=== PATIENT | male | born 1955 | race African-American/Black ===

== ENCOUNTER 2017-11-18 09:45 | Emergency (ER) | payer MEDICAID ==
[~2017-11-18] VITALS: Ht 175.3 cm; Wt 97.0 kg
[2017-11-18 15:52] LABS: BASOPHILS % 1.1 % (0.0-2.0); EOSINOPHILS % 1.8 % (0.0-5.0); HEMATOCRIT. 39.5 % (42.0-52.0); HEMOGLOBIN. 13.5 g/dL (14.0-18.0); LYMPHOCYTES % 23.5 % (20.0-50.0); MEAN CORPUSCULAR HEMOGLOBIN 30.4 pg (28.0-32.0); MEAN PLATELET VOLUME 9.2 fl (7.4-10.4); MONOCYTES % 5.7 % (2.0-8.0); NEUTROPHILS % 67.9 % (40.0-76.0); PLATELET 172 x1000/uL (130-400); RED BLOOD CELL COUNT 4.44 mill/uL (4.7-6.1); RED CELL DISTRIBUTION WIDTH 14.5 % (11.6-14.6)
[2017-11-18 16:17] LABS: CHLORIDE 107 mEq/L (98-107)
[2017-11-18 16:26] LABS: TROPONIN I < 0.02 ng/mL (0.00-0.04)
[2017-11-18] MEDS ORDERED: ACETAMINOPHEN 325MG TABLET PO ONE (16:45)
[2017-11-18 18:07] VITALS: BP 134/76
== END 2017-11-18 18:15 | disposition home or self-care (01) ==
LOC: ER 11:04
DX: M25.511 Pain in right shoulder (principal); R79.89 Other specified abnormal findings of blood chemistry; E78.00 Pure hypercholesterolemia, unspecified; I10 Essential (primary) hypertension; F17.200 Nicotine dependence, unspecified, uncomplicated
CPT/HCPCS: 36415; 71045; 73030; 80053; 84484; 85025; 93005; 99285

== ENCOUNTER 2019-04-21 12:14 | Emergency (ER) | payer MEDICARE, MEDICAID ==
[~2019-04-21] VITALS: Ht 180.3 cm; Wt 100.0 kg
[2019-04-21] MEDS ORDERED: KETOROLAC 60MG/2ML VIAL IM ONE (14:45)
[2019-04-21 16:05] VITALS: BP 142/90
== END 2019-04-21 16:25 | disposition home or self-care (01) ==
LOC: ER 14:13
DX: M17.12 Unilateral primary osteoarthritis, left knee (principal); J45.909 Unspecified asthma, uncomplicated; I11.9 Hypertensive heart disease without heart failure; E78.00 Pure hypercholesterolemia, unspecified
CPT/HCPCS: 73562; 93971; 96372; 99284; J1885

== ENCOUNTER 2021-07-16 08:18 | Inpatient (IN) | payer MEDICARE, MEDICAID ==
[2021-07-16] VITALS (8 sets, daily range): BP systolic 107–147; BP diastolic 37–87
[~2021-07-16] VITALS: Ht 172.7 cm; Wt 104.3 kg
[2021-07-16] MEDS ORDERED: LEVETIRACETAM 1000MG PREMIX 100 ML IV ONE (09:00)
[2021-07-16] MEDS ORDERED: SODIUM CHLORIDE 0.9% 1,000 ML IV ONE ×2 (09:15→10:45)
[2021-07-16] MEDS ORDERED: IOHEXOL-350 100 ML BOTTLE ONE (09:22)
[2021-07-16 09:25] LABS: BASOPHILS % 0.6 % (0.0-2.0); EOSINOPHILS % 0.5 % (0.0-5.0); HEMATOCRIT. 45.5 % (42.0-52.0); MEAN CORPUSCULAR HEMOGLOBIN 29.9 pg (28.0-32.0); MEAN PLATELET VOLUME 10.8 fl (7.4-10.4); MONOCYTES % 6.9 % (2.0-8.0); PLATELET 238 x1000/uL (130-400); RED BLOOD CELL COUNT 4.69 mill/uL (4.7-6.1); RED CELL DISTRIBUTION WIDTH 14.6 % (11.6-14.6)
[2021-07-16] MEDS ORDERED: LORAZEPAM 2MG/ML CPJ IV ONE (09:30)
[2021-07-16 09:31] LABS: CHLORIDE 90 mEq/L (98-107)
[2021-07-16 09:35] LABS: ETHANOL BLOOD < 10 mg/dL
[2021-07-16 09:36] LABS: PROTHROMBIN TIME 10.5 sec (9.6-11.0)
[2021-07-16 09:37] LABS: LDL CHOLESTEROL 72 mg/dL (5-100)
[2021-07-16 09:43] LABS: BETA HYDROXYBUTYRATE 0.3 mMol/L (0.0-0.3)
[2021-07-16] MEDS ORDERED: INSULIN REGULAR (DRIP) 100 UNITS in SODIUM CHLORIDE 0.9% 100 ML IV ONE (10:00)
[2021-07-16 10:23] LABS: BG BASE EXCESS -13.8 mmol/L (-2.0-2.0); BG CARBOXYHEMOGLOBIN 0.4 % (0.5-1.5); BG DEOXYHEMOGLOBIN 5.2 % (0.0-5.0); BG FRACTION INSPIRED OXYGEN 99.8; BG HCO3 ACT 12.4 mmol/L (22.0-26.0); BG METHEMOGLOBIN 0.3 % (0.0-1.5); BG OXYGEN SATURATION 94.8 % (92.0-98.5); BG OXYHEMOGLOBIN 94.1 % (94.0-97.0); BG PCO2 30.8 mmHg (35.0-45.0); BG PH 7.224 (7.350-7.450); BG PO2 88.5 mmHg (75.0-100.0); BG SAMPLE SITE LEFT RADIAL; BG TOTAL HEMOGLOBIN 15.9 g/dL (12.0-18.0); BG VENT MODE MASK - NRB
[2021-07-16] MEDS ORDERED: DEXTROSE 50% WATER 50ML SYRINGE IV PRN ×2 (15:00)
[2021-07-16] MEDS ORDERED: ONDANSETRON HCL 4MG/2ML INJ IV PRN (15:00)
[2021-07-16] MEDS ORDERED: DOCUSATE SODIUM 100MG CAPSULE PO PRN (15:00)
[2021-07-16] MEDS ORDERED: ACETAMINOPHEN 325MG TABLET PO PRN (15:00)
[2021-07-16] MEDS ORDERED: MAGNESIUM/ALUMINUM HYDROXIDE/SIMETHICONE 30ML UDC PO PRN (15:00)
[2021-07-16] MEDS ORDERED: GUAIFENESIN 200MG/10ML SUGAR FREE UDC PO PRN (15:00)
[2021-07-16] MEDS: INSULIN REGULAR (DRIP) 100 UNITS in SODIUM CHLORIDE 0.9% 100 ML IV SCH (15:00)
[2021-07-16] MEDS ORDERED: ENOXAPARIN 40MG/0.4ML SYR SUBCUT SCH (15:00)
[2021-07-16] MEDS ORDERED: LEVETIRACETAM 500 MG in SODIUM CHLORIDE 0.9% 100 ML IV SCH (15:15)
[2021-07-16] MEDS ORDERED: LORAZEPAM 2MG/ML CPJ IV PRN (15:15)
[2021-07-16] MEDS: BLOOD SUGAR DIAGNOSTIC STRIP TEST SCH ×9 (15:40→23:00)
[2021-07-16] MEDS: ENOXAPARIN 30MG/0.3ML SYR SUBCUT SCH (17:07)
[2021-07-16] MEDS: SODIUM CHLORIDE 0.9% 1,000 ML IV SCH ×2 (17:08→21:40)
[2021-07-16 20:35] LABS: CLARITY URINE CLOUDY (CLEAR); COLOR URINE YELLOW (YELLOW); KETONES URINE TRACE (NEGATIVE); LEUKOCYTE ESTERASE URINE TRACE (NEGATIVE); NITRITE URINE NEGATIVE (NEGATIVE); OCCULT BLOOD URINE 3+ (NEGATIVE); PH URINE 5.5 (4.5-8.0); PROTEIN URINE 2+ (NEGATIVE); SPECIFIC GRAVITY URINE 1.042 (1.005-1.030); UROBILINOGEN URINE 0.2 E.U./dL (0.2-1.0)
[2021-07-16 20:51] LABS: CANNABINOID URINE SCREEN NEGATIVE (NEGATIVE)
[2021-07-16 20:52] LABS: *AMPHETAMINES SCREEN URINE NEGATIVE (NEGATIVE); *BARBITURATES SCREEN URINE NEGATIVE (NEGATIVE); *BENZODIAZEPINES SCREEN URINE NEGATIVE (NEGATIVE); *COCAINE SCREEN URINE PRESUMTIVE POSITIVE (NEGATIVE); OPIATES URINE SCREEN NEGATIVE (NEGATIVE)
[2021-07-16 20:53] LABS: PHENCYCLIDINE URINE SCREEN PRESUMTIVE POSITIVE (NEGATIVE)
[2021-07-16 20:54] LABS: METHADONE URINE SCREEN NEGATIVE (NEGATIVE)
[2021-07-16] MEDS: LEVETIRACETAM 500MG PREMIX 100 ML IV SCH (21:35)
[2021-07-16] MEDS: ACETAMINOPHEN 650MG SUPP PR PRN (21:35)
[2021-07-16 21:43] LABS: PHOSPHORUS 2.5 mg/dL (2.5-4.9)
[2021-07-16] MEDS: IPRATROPIUM/ALBUTEROL 0.5-3(2.5)MG/3ML NEB NEB PRN (21:56)
[2021-07-16] MEDS: DILTIAZEM HCL 60MG TABLET PO SCH (22:00)
[2021-07-16] MEDS ORDERED: VANCOMYCIN 1250MG in DEXTROSE 5% WATER 250ML IV NR (23:30)
[2021-07-16] MEDS ORDERED: PIPERACILLIN/TAZOBACTAM 3.375 G in DEXTROSE 5% WATER 50 ML IV SCH (23:30)
[2021-07-17] VITALS (46 sets, daily range): BP systolic 102–196; BP diastolic 36–124
[2021-07-17] MEDS: DEXT 5%/0.9% NACL KCL 20MEQ/L 1,000 ML IV SCH ×4 (00:15→19:32)
[2021-07-17] MEDS: BLOOD SUGAR DIAGNOSTIC STRIP TEST SCH ×24 (01:00→23:22)
[2021-07-17] MEDS: PIPERACILLIN/TAZOBACTAM 3.375 G in DEXTROSE 5% WATER 50 ML IV SCH ×3 (03:18→22:28)
[2021-07-17] MEDS: ENOXAPARIN 30MG/0.3ML SYR SUBCUT SCH ×2 (04:18→15:08)
[2021-07-17 05:19] LABS: BASOPHILS % 0.6 % (0.0-2.0); EOSINOPHILS % 0.3 % (0.0-5.0); HEMATOCRIT. 39.6 % (42.0-52.0); HEMOGLOBIN. 13.6 g/dL (14.0-18.0); LYMPHOCYTES % 11.6 % (20.0-50.0); MEAN CORPUSCULAR VOLUME 87.1 fL (80.0-94.0); MEAN PLATELET VOLUME 10.8 fl (7.4-10.4); MONOCYTES % 9.2 % (2.0-8.0); NEUTROPHILS % 78.3 % (40.0-76.0); PLATELET 169 x1000/uL (130-400); RED BLOOD CELL COUNT 4.54 mill/uL (4.7-6.1); RED CELL DISTRIBUTION WIDTH 14.2 % (11.6-14.6)
[2021-07-17 05:26] LABS: CHLORIDE 118 mEq/L (98-107)
[2021-07-17 05:34] LABS: LDL CHOLESTEROL 74 mg/dL (5-100)
[2021-07-17 05:36] LABS: CREATINE KINASE MB FRACTION 3.9 ng/mL (0.5-3.6); HDL CHOLESTEROL 43 mg/dL (40-59)
[2021-07-17] MEDS: DILTIAZEM HCL 60MG TABLET PO SCH ×3 (06:00→21:02)
[2021-07-17 06:27] LABS: CREATINE KINASE 2548 IU/L (39-308)
[2021-07-17] MEDS: PANTOPRAZOLE SODIUM 40 MG/VIAL IV SCH (08:07)
[2021-07-17] MEDS: ACETAMINOPHEN 650MG SUPP PR PRN (08:07)
[2021-07-17] MEDS ORDERED: BACL-141 MT (10:03)
[2021-07-17] MEDS ORDERED: METO-539 MT (10:03)
[2021-07-17] MEDS ORDERED: ISOS20TA57 PO (10:03)
[2021-07-17] MEDS ORDERED: AMLO5TAB88 MT (10:03)
[2021-07-17] MEDS ORDERED: ASPI-1497 PO (10:03)
[2021-07-17] MEDS: LEVETIRACETAM 500MG PREMIX 100 ML IV SCH ×2 (10:30→21:02)
[2021-07-17] MEDS: VANCOMYCIN 1 G PREMIX 200 ML IV SCH (17:59)
[2021-07-17] MEDS: INSULIN REGULAR (DRIP) 100 UNITS in SODIUM CHLORIDE 0.9% 100 ML IV SCH (19:32)
[2021-07-18] VITALS (76 sets, daily range): BP systolic 66–218; BP diastolic 35–133
[2021-07-18] MEDS ORDERED: VANCOMYCIN 750 MG PREMIX 150 ML IV SCH
[2021-07-18] MEDS: BLOOD SUGAR DIAGNOSTIC STRIP TEST SCH ×16 (00:31→20:57)
[2021-07-18] MEDS: DEXT 5%/0.9% NACL KCL 20MEQ/L 1,000 ML IV SCH ×2 (02:16→12:11)
[2021-07-18] MEDS: ENOXAPARIN 30MG/0.3ML SYR SUBCUT SCH ×2 (05:01→15:58)
[2021-07-18 05:45] LABS: BASOPHILS % 0.4 % (0.0-2.0); EOSINOPHILS % 2.3 % (0.0-5.0); HEMATOCRIT. 36.7 % (42.0-52.0); HEMOGLOBIN. 12.5 g/dL (14.0-18.0); LYMPHOCYTES % 10.6 % (20.0-50.0); MEAN CORPUSCULAR HEMOGLOBIN 29.9 pg (28.0-32.0); MEAN CORPUSCULAR VOLUME 87.8 fL (80.0-94.0); MEAN PLATELET VOLUME 10.5 fl (7.4-10.4); MONOCYTES % 8.5 % (2.0-8.0); NEUTROPHILS % 78.2 % (40.0-76.0); PLATELET 147 x1000/uL (130-400); RED BLOOD CELL COUNT 4.18 mill/uL (4.7-6.1); RED CELL DISTRIBUTION WIDTH 14.4 % (11.6-14.6)
[2021-07-18] MEDS: DILTIAZEM HCL 60MG TABLET PO SCH ×4 (06:00→21:37)
[2021-07-18] MEDS: PIPERACILLIN/TAZOBACTAM 3.375 G in DEXTROSE 5% WATER 50 ML IV SCH ×3 (06:09→21:37)
[2021-07-18] MEDS ORDERED: DEXTROSE 50% WATER 50ML SYRINGE IV PRN (09:45)
[2021-07-18] MEDS: CLONIDINE 0.1MG TABLET PO PRN ×2 (10:20→18:51)
[2021-07-18] MEDS: INSULIN GLARGINE UD 100 UNITS/ML SYR SUBCUT SCH (11:29)
[2021-07-18] MEDS: VANCOMYCIN 1 G PREMIX 200 ML IV SCH (12:12)
[2021-07-18] MEDS: LEVETIRACETAM 500MG PREMIX 100 ML IV SCH ×2 (12:12→21:04)
[2021-07-18] MEDS: INSULIN LISPRO 100 UNITS/ML SUBCUT SCH ×5 (12:13→21:05)
[2021-07-18] MEDS: PANTOPRAZOLE SODIUM 40 MG/VIAL IV SCH (12:13)
[2021-07-18] MEDS ORDERED: LISINOPRIL 20MG TABLET PO SCH ×2 (15:30→16:00)
[2021-07-18] MEDS ORDERED: FUROSEMIDE 40MG/4ML VIAL IVP SCH (18:30)
[2021-07-18] MEDS: NITROGLYCERIN OINT 1GM/INCH UDPKT TD SCH (21:37)
[2021-07-18] MEDS: IPRATROPIUM/ALBUTEROL 0.5-3(2.5)MG/3ML NEB NEB PRN (21:42)
[2021-07-19] VITALS (59 sets, daily range): BP systolic 108–192; BP diastolic 39–151
[2021-07-19 02:58] LABS: BASOPHILS % 0.6 % (0.0-2.0); EOSINOPHILS % 1.3 % (0.0-5.0); HEMATOCRIT. 35.5 % (42.0-52.0); HEMOGLOBIN. 12.1 g/dL (14.0-18.0); MEAN CORPUSCULAR HEMOGLOBIN 30.1 pg (28.0-32.0); MEAN CORPUSCULAR VOLUME 87.8 fL (80.0-94.0); MEAN PLATELET VOLUME 9.9 fl (7.4-10.4); MONOCYTES % 8.2 % (2.0-8.0); NEUTROPHILS % 78.9 % (40.0-76.0); PLATELET 150 x1000/uL (130-400); RED BLOOD CELL COUNT 4.04 mill/uL (4.7-6.1); RED CELL DISTRIBUTION WIDTH 14.6 % (11.6-14.6)
[2021-07-19 03:10] LABS: CHLORIDE 118 mEq/L (98-107)
[2021-07-19] MEDS: ENOXAPARIN 30MG/0.3ML SYR SUBCUT SCH ×2 (03:15→17:09)
[2021-07-19 03:17] LABS: PHOSPHORUS 3.2 mg/dL (2.5-4.9)
[2021-07-19] MEDS: VANCOMYCIN 1 G PREMIX 200 ML IV SCH ×2 (05:28→05:39)
[2021-07-19] MEDS: PIPERACILLIN/TAZOBACTAM 3.375 G in DEXTROSE 5% WATER 50 ML IV SCH ×4 (05:28→21:01)
[2021-07-19] MEDS: BLOOD SUGAR DIAGNOSTIC STRIP TEST SCH ×4 (06:11→21:05)
[2021-07-19] MEDS: DILTIAZEM HCL 60MG TABLET PO SCH ×3 (06:23→21:01)
[2021-07-19] MEDS: NITROGLYCERIN OINT 1GM/INCH UDPKT TD SCH ×3 (06:23→21:02)
[2021-07-19] MEDS: INSULIN LISPRO 100 UNITS/ML SUBCUT SCH ×7 (06:25→21:03)
[2021-07-19] MEDS ORDERED: LIDOCAINE HCL 1% 30ML VIAL (10MG/ML) ONE (08:04)
[2021-07-19] MEDS: LISINOPRIL 20MG TABLET PO SCH ×2 (09:27→21:00)
[2021-07-19] MEDS: INSULIN GLARGINE UD 100 UNITS/ML SYR SUBCUT SCH (09:28)
[2021-07-19] MEDS ORDERED: POTASSIUM CHLORIDE 20MEQ/PACKET PO NR (09:45)
[2021-07-19] MEDS: FUROSEMIDE 40MG/4ML VIAL IVP SCH ×2 (12:06→17:09)
[2021-07-19] MEDS: LEVETIRACETAM 500MG PREMIX 100 ML IV SCH ×2 (12:07→21:00)
[2021-07-19] MEDS: PANTOPRAZOLE SODIUM 40 MG/VIAL IV SCH (12:07)
[2021-07-19] MEDS: VANCOMYCIN 1250MG in DEXTROSE 5% WATER 250ML IV SCH (15:07)
[2021-07-20 00:07] VITALS: BP 123/68
[2021-07-20] MEDS: ENOXAPARIN 30MG/0.3ML SYR SUBCUT SCH ×2 (03:31→17:06)
[2021-07-20 04:00] VITALS: BP 125/78
[2021-07-20] MEDS: PIPERACILLIN/TAZOBACTAM 3.375 G in DEXTROSE 5% WATER 50 ML IV SCH ×2 (05:46→14:21)
[2021-07-20] MEDS: DILTIAZEM HCL 60MG TABLET PO SCH ×3 (05:47→21:26)
[2021-07-20] MEDS: NITROGLYCERIN OINT 1GM/INCH UDPKT TD SCH ×3 (05:47→21:27)
[2021-07-20] MEDS: FUROSEMIDE 40MG/4ML VIAL IVP SCH ×2 (06:40→17:00)
[2021-07-20] MEDS: BLOOD SUGAR DIAGNOSTIC STRIP TEST SCH ×4 (07:41→21:25)
[2021-07-20 08:00] VITALS: BP 110/67
[2021-07-20] MEDS: VANCOMYCIN 1250MG in DEXTROSE 5% WATER 250ML IV SCH (08:24)
[2021-07-20] MEDS: LEVETIRACETAM 500MG PREMIX 100 ML IV SCH ×2 (08:24→21:24)
[2021-07-20] MEDS: LISINOPRIL 20MG TABLET PO SCH ×2 (08:25→21:25)
[2021-07-20] MEDS: PANTOPRAZOLE SODIUM 40 MG/VIAL IV SCH (08:25)
[2021-07-20] MEDS: INSULIN LISPRO 100 UNITS/ML SUBCUT SCH ×7 (08:26→21:28)
[2021-07-20 09:40] LABS: BASOPHILS % 0.7 % (0.0-2.0); EOSINOPHILS % 2.6 % (0.0-5.0); HEMOGLOBIN. 13.2 g/dL (14.0-18.0); LYMPHOCYTES % 14.4 % (20.0-50.0); MEAN CORPUSCULAR HEMOGLOBIN 29.8 pg (28.0-32.0); MEAN CORPUSCULAR VOLUME 88.4 fL (80.0-94.0); MEAN PLATELET VOLUME 10.8 fl (7.4-10.4); NEUTROPHILS % 76.3 % (40.0-76.0); PLATELET 184 x1000/uL (130-400); RED BLOOD CELL COUNT 4.41 mill/uL (4.7-6.1); RED CELL DISTRIBUTION WIDTH 14.4 % (11.6-14.6)
[2021-07-20] MEDS: INSULIN GLARGINE UD 100 UNITS/ML SYR SUBCUT SCH (10:28)
[2021-07-20 11:11] LABS: CHLORIDE 112 mEq/L (98-107); PHOSPHORUS 3.7 mg/dL (2.5-4.9)
[2021-07-20 12:00] VITALS: BP 133/80
[2021-07-20] MEDS ORDERED: GUAIFENESIN-DM 200MG-20MG/10ML UDC PO PRN (14:15)
[2021-07-20] MEDS ORDERED: CEFTRIAXONE 1 G PREMIX 50 ML IV SCH (14:45)
[2021-07-20 16:02] VITALS: BP 141/78
[2021-07-20] MEDS ORDERED: GADOTERATE MEGLUMINE 5 MMOL/10 ML VIAL IV ONE (16:09)
[2021-07-20] MEDS: CEFTRIAXONE 1,000 MG in DEXTROSE 5% WATER 50 ML IV SCH (17:01)
[2021-07-20] MEDS: AZITHROMYCIN 500 MG in DEXT 5% WATER 250 ML IV SCH (17:01)
[2021-07-20] MEDS: ACETAMINOPHEN 325MG TABLET PO PRN (19:56)
[2021-07-20 20:00] VITALS: BP 110/58
[2021-07-21] VITALS: BP 92/60
[2021-07-21 04:00] VITALS: BP 135/70
[2021-07-21] MEDS: ENOXAPARIN 30MG/0.3ML SYR SUBCUT SCH ×2 (05:08→15:11)
[2021-07-21] MEDS: DILTIAZEM HCL 60MG TABLET PO SCH ×3 (05:08→21:24)
[2021-07-21] MEDS: NITROGLYCERIN OINT 1GM/INCH UDPKT TD SCH ×3 (05:08→21:24)
[2021-07-21] MEDS: FUROSEMIDE 40MG/4ML VIAL IVP SCH ×2 (06:22→17:05)
[2021-07-21 06:45] LABS: BASOPHILS % 0.8 % (0.0-2.0); EOSINOPHILS % 2.9 % (0.0-5.0); HEMATOCRIT. 36.9 % (42.0-52.0); HEMOGLOBIN. 12.4 g/dL (14.0-18.0); LYMPHOCYTES % 11.9 % (20.0-50.0); MEAN CORPUSCULAR HEMOGLOBIN 29.6 pg (28.0-32.0); MEAN CORPUSCULAR VOLUME 88.6 fL (80.0-94.0); MEAN PLATELET VOLUME 10.1 fl (7.4-10.4); NEUTROPHILS % 75.4 % (40.0-76.0); PLATELET 163 x1000/uL (130-400); RED BLOOD CELL COUNT 4.17 mill/uL (4.7-6.1); RED CELL DISTRIBUTION WIDTH 14.3 % (11.6-14.6)
[2021-07-21] MEDS: BLOOD SUGAR DIAGNOSTIC STRIP TEST SCH ×4 (06:56→21:24)
[2021-07-21 07:24] LABS: PHOSPHORUS 4.4 mg/dL (2.5-4.9)
[2021-07-21] MEDS: INSULIN LISPRO 100 UNITS/ML SUBCUT SCH ×7 (07:27→21:33)
[2021-07-21 08:00] VITALS: BP 126/66
[2021-07-21] MEDS: LISINOPRIL 20MG TABLET PO SCH ×2 (08:02→21:23)
[2021-07-21] MEDS: FAMOTIDINE 20MG TABLET PO SCH ×2 (08:02→21:24)
[2021-07-21] MEDS: LEVETIRACETAM 500MG PREMIX 100 ML IV SCH (08:04)
[2021-07-21] MEDS: INSULIN GLARGINE UD 100 UNITS/ML SYR SUBCUT SCH (11:26)
[2021-07-21 12:00] VITALS: BP 116/87
[2021-07-21] MEDS: AZITHROMYCIN 500 MG in DEXT 5% WATER 250 ML IV SCH (15:11)
[2021-07-21] MEDS: CEFTRIAXONE 1,000 MG in DEXTROSE 5% WATER 50 ML IV SCH (15:11)
[2021-07-21 16:00] VITALS: BP 112/85
[2021-07-21 20:00] VITALS: BP 116/66
[2021-07-21] MEDS: LEVETIRACETAM 500MG TABLET PO SCH (21:23)
[2021-07-22] VITALS: BP 133/40
[2021-07-22 04:00] VITALS: BP 133/60
[2021-07-22] MEDS: ENOXAPARIN 30MG/0.3ML SYR SUBCUT SCH ×2 (04:19→16:00)
[2021-07-22] MEDS: DILTIAZEM HCL 60MG TABLET PO SCH ×3 (05:39→21:38)
[2021-07-22] MEDS: NITROGLYCERIN OINT 1GM/INCH UDPKT TD SCH ×3 (05:40→21:39)
[2021-07-22] MEDS: INSULIN LISPRO 100 UNITS/ML SUBCUT SCH ×7 (05:45→21:44)
[2021-07-22] MEDS: BLOOD SUGAR DIAGNOSTIC STRIP TEST SCH ×4 (05:45→21:37)
[2021-07-22] MEDS: FUROSEMIDE 40MG/4ML VIAL IVP SCH ×2 (07:15→18:26)
[2021-07-22 08:00] VITALS: BP 118/65
[2021-07-22] MEDS: FAMOTIDINE 20MG TABLET PO SCH ×2 (10:21→21:29)
[2021-07-22] MEDS: LISINOPRIL 20MG TABLET PO SCH ×2 (10:22→21:37)
[2021-07-22] MEDS: LEVETIRACETAM 500MG TABLET PO SCH ×2 (10:22→21:28)
[2021-07-22] MEDS: INSULIN GLARGINE UD 100 UNITS/ML SYR SUBCUT SCH (10:23)
[2021-07-22 12:00] VITALS: BP 116/60
[2021-07-22 16:00] VITALS: BP 139/90
[2021-07-22] MEDS: CEFTRIAXONE 1,000 MG in DEXTROSE 5% WATER 50 ML IV SCH (16:00)
[2021-07-22] MEDS: AZITHROMYCIN 500 MG in DEXT 5% WATER 250 ML IV SCH (18:46)
[2021-07-22 20:00] VITALS: BP 115/56
[2021-07-22] MEDS: ACETAMINOPHEN 325MG TABLET PO PRN (21:36)
[2021-07-23] VITALS: BP 111/66
[2021-07-23 04:00] VITALS: BP 125/91
[2021-07-23] MEDS: ENOXAPARIN 30MG/0.3ML SYR SUBCUT SCH ×2 (04:45→15:00)
[2021-07-23] MEDS: NITROGLYCERIN OINT 1GM/INCH UDPKT TD SCH ×3 (05:22→21:05)
[2021-07-23] MEDS: DILTIAZEM HCL 60MG TABLET PO SCH ×3 (05:23→21:05)
[2021-07-23] MEDS: BLOOD SUGAR DIAGNOSTIC STRIP TEST SCH ×4 (06:24→21:07)
[2021-07-23] MEDS: INSULIN LISPRO 100 UNITS/ML SUBCUT SCH ×8 (06:25→21:06)
[2021-07-23] MEDS: FUROSEMIDE 40MG/4ML VIAL IVP SCH ×2 (07:15→17:03)
[2021-07-23 08:00] VITALS: BP 108/84
[2021-07-23] MEDS: LISINOPRIL 20MG TABLET PO SCH ×2 (08:29→21:05)
[2021-07-23] MEDS: FAMOTIDINE 20MG TABLET PO SCH ×2 (09:22→21:04)
[2021-07-23] MEDS: LEVETIRACETAM 500MG TABLET PO SCH ×2 (09:22→21:04)
[2021-07-23] MEDS: INSULIN GLARGINE UD 100 UNITS/ML SYR SUBCUT SCH (09:23)
[2021-07-23 12:00] VITALS: BP 122/57
[2021-07-23] MEDS: CEFTRIAXONE 1,000 MG in DEXTROSE 5% WATER 50 ML IV SCH (15:00)
[2021-07-23 16:00] VITALS: BP 124/82
[2021-07-23] MEDS: AZITHROMYCIN 500 MG in DEXT 5% WATER 250 ML IV SCH (17:03)
[2021-07-23 20:00] VITALS: BP 111/69
[2021-07-24] VITALS: BP 101/37
[2021-07-24 04:00] VITALS: BP 128/42
[2021-07-24] MEDS: ENOXAPARIN 30MG/0.3ML SYR SUBCUT SCH ×2 (04:59→17:23)
[2021-07-24] MEDS: DILTIAZEM HCL 60MG TABLET PO SCH ×3 (05:00→21:05)
[2021-07-24] MEDS: NITROGLYCERIN OINT 1GM/INCH UDPKT TD SCH ×3 (05:00→21:06)
[2021-07-24] MEDS: BLOOD SUGAR DIAGNOSTIC STRIP TEST SCH ×4 (06:03→20:58)
[2021-07-24] MEDS: INSULIN LISPRO 100 UNITS/ML SUBCUT SCH ×7 (06:03→20:58)
[2021-07-24] MEDS: FUROSEMIDE 40MG/4ML VIAL IVP SCH ×2 (06:09→17:23)
[2021-07-24 08:00] VITALS: BP 97/42
[2021-07-24] MEDS: LISINOPRIL 20MG TABLET PO SCH ×2 (09:00→20:57)
[2021-07-24] MEDS: LEVETIRACETAM 500MG TABLET PO SCH ×2 (09:13→20:57)
[2021-07-24] MEDS: FAMOTIDINE 20MG TABLET PO SCH ×2 (09:13→20:57)
[2021-07-24] MEDS: INSULIN GLARGINE UD 100 UNITS/ML SYR SUBCUT SCH (09:59)
[2021-07-24] MEDS ORDERED: AZITHROMYCIN 500 MG TABLET PO SCH (11:00)
[2021-07-24 12:00] VITALS: BP 132/81
[2021-07-24 16:00] VITALS: BP 140/64
[2021-07-24] MEDS: CEFTRIAXONE 1,000 MG in DEXTROSE 5% WATER 50 ML IV SCH (17:23)
[2021-07-24 20:00] VITALS: BP 108/59
[2021-07-25] VITALS: BP 100/59
[2021-07-25 04:00] VITALS: BP 106/61
[2021-07-25] MEDS: NITROGLYCERIN OINT 1GM/INCH UDPKT TD SCH ×3 (05:16→21:03)
[2021-07-25] MEDS: DILTIAZEM HCL 60MG TABLET PO SCH ×3 (05:16→21:03)
[2021-07-25] MEDS: ENOXAPARIN 30MG/0.3ML SYR SUBCUT SCH ×2 (05:17→16:57)
[2021-07-25] MEDS: INSULIN LISPRO 100 UNITS/ML SUBCUT SCH ×7 (05:54→20:52)
[2021-07-25] MEDS: BLOOD SUGAR DIAGNOSTIC STRIP TEST SCH ×4 (05:55→20:51)
[2021-07-25] MEDS: FUROSEMIDE 40MG/4ML VIAL IVP SCH ×2 (06:11→16:57)
[2021-07-25 08:00] VITALS: BP 121/69
[2021-07-25] MEDS: FAMOTIDINE 20MG TABLET PO SCH ×2 (08:45→20:51)
[2021-07-25] MEDS: LEVETIRACETAM 500MG TABLET PO SCH ×2 (08:45→20:50)
[2021-07-25] MEDS: LISINOPRIL 20MG TABLET PO SCH ×2 (08:46→20:51)
[2021-07-25] MEDS: INSULIN GLARGINE UD 100 UNITS/ML SYR SUBCUT SCH (10:15)
[2021-07-25 12:00] VITALS: BP 129/74
[2021-07-25 16:00] VITALS: BP 129/41
[2021-07-25 20:00] VITALS: BP 106/58
[2021-07-26] VITALS: BP 110/56
[2021-07-26 04:00] VITALS: BP 124/70
[2021-07-26] MEDS: ENOXAPARIN 30MG/0.3ML SYR SUBCUT SCH ×2 (04:59→15:56)
[2021-07-26] MEDS: DILTIAZEM HCL 60MG TABLET PO SCH ×3 (05:00→21:21)
[2021-07-26] MEDS: NITROGLYCERIN OINT 1GM/INCH UDPKT TD SCH ×3 (05:00→21:29)
[2021-07-26] MEDS: BLOOD SUGAR DIAGNOSTIC STRIP TEST SCH ×4 (05:47→20:17)
[2021-07-26] MEDS: INSULIN LISPRO 100 UNITS/ML SUBCUT SCH ×7 (05:48→20:18)
[2021-07-26] MEDS: FUROSEMIDE 40MG/4ML VIAL IVP SCH ×2 (06:17→16:48)
[2021-07-26 08:00] VITALS: BP 103/63
[2021-07-26] MEDS: LISINOPRIL 20MG TABLET PO SCH ×2 (08:45→20:59)
[2021-07-26] MEDS: FAMOTIDINE 20MG TABLET PO SCH ×2 (09:20→21:00)
[2021-07-26] MEDS: LEVETIRACETAM 500MG TABLET PO SCH ×2 (09:20→21:00)
[2021-07-26] MEDS: INSULIN GLARGINE UD 100 UNITS/ML SYR SUBCUT SCH (09:21)
[2021-07-26 12:00] VITALS: BP 128/66
[2021-07-26 16:00] VITALS: BP 122/56
[2021-07-26 20:00] VITALS: BP 110/57
[2021-07-27 00:07] VITALS: BP 109/65
[2021-07-27] MEDS: ENOXAPARIN 30MG/0.3ML SYR SUBCUT SCH ×2 (03:06→16:59)
[2021-07-27 04:00] VITALS: BP 120/88
[2021-07-27] MEDS: NITROGLYCERIN OINT 1GM/INCH UDPKT TD SCH ×2 (05:40→13:46)
[2021-07-27] MEDS: DILTIAZEM HCL 60MG TABLET PO SCH ×2 (05:40→13:47)
[2021-07-27] MEDS: BLOOD SUGAR DIAGNOSTIC STRIP TEST SCH ×3 (05:42→16:55)
[2021-07-27] MEDS: INSULIN LISPRO 100 UNITS/ML SUBCUT SCH ×6 (05:48→16:55)
[2021-07-27] MEDS: FUROSEMIDE 40MG/4ML VIAL IVP SCH (06:39)
[2021-07-27 08:00] VITALS: BP_SYST 111; BP_SYST 160; BP_DIAS 103; BP_DIAS 63
[2021-07-27] MEDS: LEVETIRACETAM 500MG TABLET PO SCH (09:04)
[2021-07-27] MEDS: LISINOPRIL 20MG TABLET PO SCH (09:05)
[2021-07-27] MEDS: FAMOTIDINE 20MG TABLET PO SCH (09:05)
[2021-07-27] MEDS: INSULIN GLARGINE UD 100 UNITS/ML SYR SUBCUT SCH (10:16)
[2021-07-27 12:00] VITALS: BP 112/60
[2021-07-27 16:00] VITALS: BP 108/55
[2021-07-27] MEDS ORDERED: FUROSEMIDE 40MG TABLET PO SCH (17:15)
[2021-07-27 18:53] VITALS: BP_SYST 108; BP_DIAS 55; BP_DIAS 71
[2021-07-28] MEDS ORDERED: FAMOTIDINE 20MG TABLET PO SCH (06:40)
== END 2021-07-27 20:10 | DRG 720 ==
LOC: ER 08:18 → MICUNO 12:28 → EDBEDREQSVC 12:31 → EDBEDREQTM 12:31 → EDBEDREQ 12:31 → ENRESERV 13:09 → MICUSO 23:55 → 7WST 07-19 14:25 → 7EST 07-22 06:07
PROVIDERS: ADMIT Internal Medicine; ATTEND Internal Medicine
PROC: XW03396 Introduction of Ceftolozane/Tazobactam Anti-infective into Peripheral Vein, Percutaneous Approach, New Technology Group 6 (ICD-10-PCS; 2021-07-17)
PROC: 02HV33Z Insertion of Infusion Device into Superior Vena Cava, Percutaneous Approach (ICD-10-PCS; principal; 2021-07-19)
PROC: B548ZZA Ultrasonography of Superior Vena Cava, Guidance (ICD-10-PCS; 2021-07-19)
DX: A41.89 Other specified sepsis (principal); J96.01 Acute respiratory failure with hypoxia; J12.82 Pneumonia due to coronavirus disease 2019; N17.0 Acute kidney failure with tubular necrosis; U07.1 COVID-19; E44.0 Moderate protein-calorie malnutrition; E11.10 Type 2 diabetes mellitus with ketoacidosis without coma; G92.8 Other toxic encephalopathy; E78.00 Pure hypercholesterolemia, unspecified; E87.1 Hypo-osmolality and hyponatremia; J45.909 Unspecified asthma, uncomplicated; R56.9 Unspecified convulsions; R65.20 Severe sepsis without septic shock; D32.9 Benign neoplasm of meninges, unspecified; N18.9 Chronic kidney disease, unspecified; E11.22 Type 2 diabetes mellitus with diabetic chronic kidney disease; I12.9 Hypertensive chronic kidney disease with stage 1 through stage 4 chronic kidney disease, or unspecified chronic kidney disease; I25.10 Atherosclerotic heart disease of native coronary artery without angina pectoris; E78.5 Hyperlipidemia, unspecified; F14.10 Cocaine abuse, uncomplicated; F16.10 Hallucinogen abuse, uncomplicated; I27.20 Pulmonary hypertension, unspecified; Z71.51 Drug abuse counseling and surveillance of drug abuser; Z68.35 Body mass index [BMI] 35.0-35.9, adult
CPT/HCPCS: 36415; 36573; 36600; 70496; 70498; 70553; 71045; 80048; 80053; 80061; 80202; 80305; 80320; 81003; 82010; 82375; 82550; 82553; 82805; 82962; 83036; 83721; 83735; 84100; 84484; 85025; 87070; 87426; 93005; 93306; 93970; 94640; 97110; 97116; 97162; 97166; 97530; 97535; 99291; A9577; C1725; C1769; C1893; C9113; J0456; J0696; J1650; J1815; J1940; J1953; J2060; J2543; J3370; J3490; J7030; J7040; J7042; J7050; J7060; Q9967; U0003; U0005; G0480

== ENCOUNTER 2021-07-27 12:28 | Inpatient (IN) | payer MEDICARE, MEDICAID ==
[~2021-07-27] VITALS: Ht 172.7 cm; Wt 98.9 kg
[~2021-07-27 12:28] MED LIST: AMLO5TAB88 MT; ASPI-1497 PO; BACL-141 MT; ISOS20TA57 PO; METO-539 MT
[2021-07-27 20:12] VITALS: BP 117/76
[2021-07-27] MEDS ORDERED: IPRATROPIUM/ALBUTEROL 0.5-3(2.5)MG/3ML NEB HHN PRN (21:45)
[2021-07-27] MEDS ORDERED: ACETAMINOPHEN 325MG TABLET PO PRN (21:45)
[2021-07-27] MEDS ORDERED: DEXTROSE 50% WATER 50ML SYRINGE IV PRN (21:45)
[2021-07-27] MEDS ORDERED: ONDANSETRON HCL 4MG TABLET PO PRN (21:45)
[2021-07-27] MEDS: LISINOPRIL 20MG TABLET PO SCH (22:00)
[2021-07-27] MEDS: DILTIAZEM HCL 60MG TABLET PO SCH (22:00)
[2021-07-27 22:12] VITALS: BP 117/76
[2021-07-27] MEDS ORDERED: MAGNESIUM/ALUMINUM HYDROXIDE/SIMETHICONE 30ML UDC PO PRN (22:15)
[2021-07-27] MEDS ORDERED: CLONIDINE 0.1MG TABLET PO PRN (22:15)
[2021-07-27] MEDS ORDERED: ACETAMINOPHEN 650MG SUPP PR PRN (22:15)
[2021-07-27] MEDS ORDERED: GUAIFENESIN-DM 200MG-20MG/10ML UDC PO PRN (22:15)
[2021-07-28] MEDS: LEVETIRACETAM 500MG TABLET PO SCH ×3 (00:03→21:17)
[2021-07-28] MEDS: NITROGLYCERIN OINT 1GM/INCH UDPKT TD SCH ×4 (00:03→21:18)
[2021-07-28] MEDS: DILTIAZEM HCL 60MG TABLET PO SCH ×3 (06:00→13:03)
[2021-07-28] MEDS: BLOOD SUGAR DIAGNOSTIC STRIP TEST SCH ×4 (06:09→21:18)
[2021-07-28] MEDS: INSULIN LISPRO 100 UNITS/ML SUBCUT SCH ×4 (06:10→21:00)
[2021-07-28] MEDS: ENOXAPARIN 30MG/0.3ML SYR SUBCUT SCH ×3 (06:23→21:18)
[2021-07-28] MEDS: FUROSEMIDE 40MG TABLET PO SCH ×2 (06:24→17:11)
[2021-07-28] MEDS: FAMOTIDINE 20MG TABLET PO SCH (06:24)
[2021-07-28 06:55] LABS: CHLORIDE 105 mEq/L (98-107)
[2021-07-28 07:02] LABS: HEMATOCRIT. 38.5 % (42.0-52.0); HEMOGLOBIN. 12.8 g/dL (14.0-18.0); LYMPHOCYTES % 17.9 % (20.0-50.0); MEAN CORPUSCULAR VOLUME 90.1 fL (80.0-94.0); MEAN PLATELET VOLUME 9.6 fl (7.4-10.4); NEUTROPHILS % 70.1 % (40.0-76.0); PLATELET 249 x1000/uL (130-400); RED BLOOD CELL COUNT 4.28 mill/uL (4.7-6.1); RED CELL DISTRIBUTION WIDTH 13.9 % (11.6-14.6)
[2021-07-28 08:00] VITALS: BP 99/65
[2021-07-28] MEDS: LISINOPRIL 20MG TABLET PO SCH ×2 (08:14→21:17)
[2021-07-28] MEDS: INSULIN GLARGINE UD 100 UNITS/ML SYR SUBCUT SCH (10:00)
[2021-07-28 20:00] VITALS: BP 120/83
[2021-07-29] MEDS: NITROGLYCERIN OINT 1GM/INCH UDPKT TD SCH ×3 (05:31→21:19)
[2021-07-29] MEDS: DILTIAZEM HCL 60MG TABLET PO SCH ×3 (05:31→21:19)
[2021-07-29] MEDS: FAMOTIDINE 20MG TABLET PO SCH (05:32)
[2021-07-29] MEDS: FUROSEMIDE 40MG TABLET PO SCH ×2 (05:32→17:48)
[2021-07-29] MEDS: BLOOD SUGAR DIAGNOSTIC STRIP TEST SCH ×4 (05:32→20:47)
[2021-07-29 06:44] LABS: BASOPHILS % 1.3 % (0.0-2.0); HEMATOCRIT. 38.2 % (42.0-52.0); LYMPHOCYTES % 21.4 % (20.0-50.0); MEAN CORPUSCULAR HEMOGLOBIN 30.3 pg (28.0-32.0); MEAN CORPUSCULAR VOLUME 89.1 fL (80.0-94.0); MEAN PLATELET VOLUME 9.8 fl (7.4-10.4); MONOCYTES % 7.9 % (2.0-8.0); NEUTROPHILS % 65.4 % (40.0-76.0); PLATELET 248 x1000/uL (130-400); RED BLOOD CELL COUNT 4.29 mill/uL (4.7-6.1); RED CELL DISTRIBUTION WIDTH 14.1 % (11.6-14.6)
[2021-07-29 06:48] LABS: CHLORIDE 105 mEq/L (98-107)
[2021-07-29 06:57] LABS: LDL CHOLESTEROL 119 mg/dL (5-100)
[2021-07-29 06:59] LABS: HDL CHOLESTEROL 31 mg/dL (40-59); TOTAL IRON BINDING CAPACITY 254 ug/dL (250-450)
[2021-07-29 07:00] LABS: CREATINE KINASE 102 IU/L (39-308)
[2021-07-29 07:02] LABS: PROSTRATE SPECIFIC AG TOTAL 1.48 ng/mL (0.0-4.0)
[2021-07-29 07:03] LABS: FOLIC ACID (FOLATE) SERUM 13.6 ng/mL (>5.38)
[2021-07-29 08:10] VITALS: BP 111/65
[2021-07-29] MEDS: INSULIN LISPRO 100 UNITS/ML SUBCUT SCH ×4 (09:00→21:34)
[2021-07-29] MEDS: LISINOPRIL 20MG TABLET PO SCH ×2 (09:38→20:47)
[2021-07-29] MEDS: LEVETIRACETAM 500MG TABLET PO SCH ×2 (09:39→20:46)
[2021-07-29] MEDS: INSULIN GLARGINE UD 100 UNITS/ML SYR SUBCUT SCH (09:42)
[2021-07-29] MEDS ORDERED: LACTULOSE 20G/30ML UDC PO SCH (12:00)
[2021-07-29] MEDS: ASCORBIC ACID 500 MG TABLET PO SCH (17:48)
[2021-07-29] MEDS: ENOXAPARIN 30MG/0.3ML SYR SUBCUT SCH (17:48)
[2021-07-29] MEDS: FERROUS SULFATE 325MG TABLET PO SCH (17:48)
[2021-07-29 20:00] VITALS: BP 165/77
[2021-07-29] MEDS ORDERED: NA PHOS,M-B/NA PHOS,DI-BA ENEMA 118ML PR SCH (20:15)
[2021-07-30] MEDS: NITROGLYCERIN OINT 1GM/INCH UDPKT TD SCH ×3 (06:00→22:00)
[2021-07-30] MEDS: DILTIAZEM HCL 60MG TABLET PO SCH ×3 (06:00→21:46)
[2021-07-30] MEDS: BLOOD SUGAR DIAGNOSTIC STRIP TEST SCH ×4 (06:30→21:45)
[2021-07-30] MEDS: ENOXAPARIN 30MG/0.3ML SYR SUBCUT SCH ×2 (06:37→17:02)
[2021-07-30] MEDS: FAMOTIDINE 20MG TABLET PO SCH (06:37)
[2021-07-30] MEDS: FUROSEMIDE 40MG TABLET PO SCH ×2 (06:39→17:03)
[2021-07-30] MEDS: INSULIN LISPRO 100 UNITS/ML SUBCUT SCH ×4 (09:00→21:58)
[2021-07-30 09:23] VITALS: BP 118/83
[2021-07-30] MEDS: FERROUS SULFATE 325MG TABLET PO SCH ×3 (09:53→17:03)
[2021-07-30] MEDS: LEVETIRACETAM 500MG TABLET PO SCH ×2 (09:53→21:51)
[2021-07-30] MEDS: LISINOPRIL 20MG TABLET PO SCH ×2 (09:53→21:00)
[2021-07-30] MEDS: ASCORBIC ACID 500 MG TABLET PO SCH (09:53)
[2021-07-30] MEDS: INSULIN GLARGINE UD 100 UNITS/ML SYR SUBCUT SCH (09:55)
[2021-07-30 12:03] LABS: CREATINE KINASE 76 IU/L (39-308)
[2021-07-30 14:00] VITALS: BP 110/81
[2021-07-30 14:32] LABS: CLARITY URINE CLEAR (CLEAR); COLOR URINE YELLOW (YELLOW); KETONES URINE NEGATIVE (NEGATIVE); LEUKOCYTE ESTERASE URINE TRACE (NEGATIVE); NITRITE URINE NEGATIVE (NEGATIVE); OCCULT BLOOD URINE NEGATIVE (NEGATIVE); PROTEIN URINE NEGATIVE (NEGATIVE); SPECIFIC GRAVITY URINE 1.014 (1.005-1.030); UROBILINOGEN URINE 0.2 E.U./dL (0.2-1.0)
[2021-07-30 20:00] VITALS: BP 94/56
[2021-07-31] MEDS: DILTIAZEM HCL 60MG TABLET PO SCH ×3 (06:00→21:39)
[2021-07-31] MEDS: NITROGLYCERIN OINT 1GM/INCH UDPKT TD SCH ×3 (06:00→21:40)
[2021-07-31] MEDS: FAMOTIDINE 20MG TABLET PO SCH (06:27)
[2021-07-31] MEDS: ENOXAPARIN 30MG/0.3ML SYR SUBCUT SCH ×2 (06:27→18:32)
[2021-07-31] MEDS: FUROSEMIDE 40MG TABLET PO SCH ×2 (06:27→16:58)
[2021-07-31] MEDS: BLOOD SUGAR DIAGNOSTIC STRIP TEST SCH ×4 (06:28→20:37)
[2021-07-31 07:37] VITALS: BP 110/63
[2021-07-31] MEDS: LISINOPRIL 20MG TABLET PO SCH ×2 (09:00→20:33)
[2021-07-31] MEDS: INSULIN LISPRO 100 UNITS/ML SUBCUT SCH ×4 (09:00→20:37)
[2021-07-31] MEDS: LEVETIRACETAM 500MG TABLET PO SCH ×2 (09:18→20:33)
[2021-07-31] MEDS: ASCORBIC ACID 500 MG TABLET PO SCH (09:18)
[2021-07-31] MEDS: FERROUS SULFATE 325MG TABLET PO SCH ×3 (09:18→16:58)
[2021-07-31] MEDS: INSULIN GLARGINE UD 100 UNITS/ML SYR SUBCUT SCH (11:00)
[2021-07-31 13:11] LABS: ANTI-NUCLEAR ANTIBODIES DIRECT Negative (Negative)
[2021-07-31] MEDS: LIDOCAINE 5% PATCH TOP SCH (16:57)
[2021-07-31 20:00] VITALS: BP 120/82
[2021-08-01] MEDS: DILTIAZEM HCL 60MG TABLET PO SCH (06:00)
[2021-08-01] MEDS: NITROGLYCERIN OINT 1GM/INCH UDPKT TD SCH ×3 (06:00→21:28)
[2021-08-01] MEDS: ENOXAPARIN 30MG/0.3ML SYR SUBCUT SCH ×2 (06:33→17:04)
[2021-08-01] MEDS: FAMOTIDINE 20MG TABLET PO SCH (06:34)
[2021-08-01] MEDS: FUROSEMIDE 40MG TABLET PO SCH ×2 (06:34→17:03)
[2021-08-01] MEDS: BLOOD SUGAR DIAGNOSTIC STRIP TEST SCH ×4 (06:39→21:23)
[2021-08-01] MEDS: INSULIN LISPRO 100 UNITS/ML SUBCUT SCH ×4 (06:39→21:00)
[2021-08-01 08:24] VITALS: BP 81/50
[2021-08-01] MEDS: LISINOPRIL 20MG TABLET PO SCH ×2 (09:00→21:25)
[2021-08-01] MEDS: ASCORBIC ACID 500 MG TABLET PO SCH (09:43)
[2021-08-01] MEDS: LEVETIRACETAM 500MG TABLET PO SCH ×2 (09:43→21:24)
[2021-08-01] MEDS: FERROUS SULFATE 325MG TABLET PO SCH ×3 (09:43→17:03)
[2021-08-01] MEDS: POLYETHYLENE GLYCOL 3350 (17GM) 1 DOSE PACK PO SCH (09:43)
[2021-08-01] MEDS: LIDOCAINE 5% PATCH TOP SCH (09:46)
[2021-08-01] MEDS: INSULIN GLARGINE UD 100 UNITS/ML SYR SUBCUT SCH (11:04)
[2021-08-01] MEDS ORDERED: DILTIAZEM HCL 60MG TABLET PO PRN (11:15)
[2021-08-01 16:27] LABS: BASOPHILS % 1.1 % (0.0-2.0); EOSINOPHILS % 1.6 % (0.0-5.0); HEMATOCRIT. 36.2 % (42.0-52.0); HEMOGLOBIN. 12.1 g/dL (14.0-18.0); LYMPHOCYTES % 19.2 % (20.0-50.0); MEAN CORPUSCULAR HEMOGLOBIN 29.8 pg (28.0-32.0); MEAN CORPUSCULAR VOLUME 88.9 fL (80.0-94.0); MEAN PLATELET VOLUME 10.4 fl (7.4-10.4); MONOCYTES % 8.3 % (2.0-8.0); NEUTROPHILS % 69.8 % (40.0-76.0); PLATELET 265 x1000/uL (130-400); RED BLOOD CELL COUNT 4.07 mill/uL (4.7-6.1); RED CELL DISTRIBUTION WIDTH 13.6 % (11.6-14.6)
[2021-08-01 20:00] VITALS: BP 129/92
[2021-08-02] MEDS: BLOOD SUGAR DIAGNOSTIC STRIP TEST SCH ×4 (05:30→20:39)
[2021-08-02] MEDS: INSULIN LISPRO 100 UNITS/ML SUBCUT SCH ×4 (05:30→20:39)
[2021-08-02] MEDS: ENOXAPARIN 30MG/0.3ML SYR SUBCUT SCH ×2 (05:42→19:09)
[2021-08-02] MEDS: NITROGLYCERIN OINT 1GM/INCH UDPKT TD SCH ×3 (05:42→21:21)
[2021-08-02 06:38] LABS: BASOPHILS % 1.8 % (0.0-2.0); EOSINOPHILS % 3.6 % (0.0-5.0); HEMATOCRIT. 36.8 % (42.0-52.0); HEMOGLOBIN. 12.4 g/dL (14.0-18.0); LYMPHOCYTES % 25.9 % (20.0-50.0); MEAN PLATELET VOLUME 9.9 fl (7.4-10.4); NEUTROPHILS % 59.7 % (40.0-76.0); PLATELET 235 x1000/uL (130-400); RED BLOOD CELL COUNT 4.14 mill/uL (4.7-6.1); RED CELL DISTRIBUTION WIDTH 14.1 % (11.6-14.6)
[2021-08-02] MEDS: FUROSEMIDE 40MG TABLET PO SCH ×2 (07:01→16:57)
[2021-08-02] MEDS: FAMOTIDINE 20MG TABLET PO SCH (07:01)
[2021-08-02 08:00] VITALS: BP 102/61
[2021-08-02] MEDS: LISINOPRIL 20MG TABLET PO SCH ×2 (09:00→21:21)
[2021-08-02] MEDS: FERROUS SULFATE 325MG TABLET PO SCH ×3 (09:11→16:56)
[2021-08-02] MEDS: LEVETIRACETAM 500MG TABLET PO SCH ×2 (09:11→21:17)
[2021-08-02] MEDS: ASCORBIC ACID 500 MG TABLET PO SCH (09:11)
[2021-08-02] MEDS: POLYETHYLENE GLYCOL 3350 (17GM) 1 DOSE PACK PO SCH (09:11)
[2021-08-02] MEDS: LIDOCAINE 5% PATCH TOP SCH ×2 (09:13→12:17)
[2021-08-02] MEDS: INSULIN GLARGINE UD 100 UNITS/ML SYR SUBCUT SCH (09:40)
[2021-08-02] MEDS: LACTULOSE 20G/30ML UDC PO SCH ×2 (12:21→13:00)
[2021-08-02] MEDS: DOCUSATE SODIUM 100MG CAPSULE PO PRN (16:57)
[2021-08-02 20:00] VITALS: BP 103/57
[2021-08-02] MEDS: ACETAMINOPHEN 325MG TABLET PO PRN (21:17)
[2021-08-03] MEDS: BLOOD SUGAR DIAGNOSTIC STRIP TEST SCH ×4 (05:58→20:41)
[2021-08-03] MEDS: NITROGLYCERIN OINT 1GM/INCH UDPKT TD SCH ×3 (05:58→21:22)
[2021-08-03] MEDS: ENOXAPARIN 30MG/0.3ML SYR SUBCUT SCH ×2 (05:59→17:16)
[2021-08-03] MEDS: INSULIN LISPRO 100 UNITS/ML SUBCUT SCH ×4 (05:59→20:56)
[2021-08-03] MEDS: FUROSEMIDE 40MG TABLET PO SCH ×2 (06:00→17:00)
[2021-08-03] MEDS: FAMOTIDINE 20MG TABLET PO SCH (06:00)
[2021-08-03 08:00] VITALS: BP 121/70
[2021-08-03] MEDS: LISINOPRIL 20MG TABLET PO SCH ×2 (09:00→20:35)
[2021-08-03] MEDS: FERROUS SULFATE 325MG TABLET PO SCH ×3 (09:05→17:01)
[2021-08-03] MEDS: ASCORBIC ACID 500 MG TABLET PO SCH (09:05)
[2021-08-03] MEDS: LEVETIRACETAM 500MG TABLET PO SCH ×2 (09:05→20:35)
[2021-08-03] MEDS: LIDOCAINE 5% PATCH TOP SCH ×2 (09:06→09:07)
[2021-08-03] MEDS: POLYETHYLENE GLYCOL 3350 (17GM) 1 DOSE PACK PO SCH (09:15)
[2021-08-03] MEDS: INSULIN GLARGINE UD 100 UNITS/ML SYR SUBCUT SCH (09:59)
[2021-08-03 20:00] VITALS: BP 137/81
[2021-08-03] MEDS: ACETAMINOPHEN 325MG TABLET PO PRN (22:50)
[2021-08-04] MEDS: NITROGLYCERIN OINT 1GM/INCH UDPKT TD SCH ×3 (06:00→22:04)
[2021-08-04] MEDS: ENOXAPARIN 30MG/0.3ML SYR SUBCUT SCH ×2 (06:08→17:26)
[2021-08-04] MEDS: FAMOTIDINE 20MG TABLET PO SCH (06:08)
[2021-08-04] MEDS: BLOOD SUGAR DIAGNOSTIC STRIP TEST SCH ×4 (06:26→21:00)
[2021-08-04] MEDS: INSULIN LISPRO 100 UNITS/ML SUBCUT SCH ×4 (06:26→21:00)
[2021-08-04 08:00] VITALS: BP 93/54
[2021-08-04] MEDS: LISINOPRIL 20MG TABLET PO SCH ×2 (08:22→22:03)
[2021-08-04] MEDS: LIDOCAINE 5% PATCH TOP SCH ×2 (08:56→08:57)
[2021-08-04] MEDS: LEVETIRACETAM 500MG TABLET PO SCH ×2 (08:58→22:03)
[2021-08-04] MEDS: POLYETHYLENE GLYCOL 3350 (17GM) 1 DOSE PACK PO SCH (08:58)
[2021-08-04] MEDS: ASCORBIC ACID 500 MG TABLET PO SCH (08:58)
[2021-08-04] MEDS: FERROUS SULFATE 325MG TABLET PO SCH ×3 (08:58→17:26)
[2021-08-04] MEDS: INSULIN GLARGINE UD 100 UNITS/ML SYR SUBCUT SCH (09:57)
[2021-08-04 12:30] VITALS: BP 129/84
[2021-08-04] MEDS: ACETAMINOPHEN 325MG TABLET PO PRN (13:22)
[2021-08-04] MEDS: FUROSEMIDE 40MG TABLET PO SCH (17:26)
[2021-08-04 20:00] VITALS: BP 142/80
[2021-08-05] MEDS: NITROGLYCERIN OINT 1GM/INCH UDPKT TD SCH ×3 (06:00→21:30)
[2021-08-05] MEDS: FAMOTIDINE 20MG TABLET PO SCH (06:54)
[2021-08-05] MEDS: BLOOD SUGAR DIAGNOSTIC STRIP TEST SCH ×4 (06:54→21:27)
[2021-08-05] MEDS: ENOXAPARIN 30MG/0.3ML SYR SUBCUT SCH ×2 (06:54→17:48)
[2021-08-05] MEDS: INSULIN LISPRO 100 UNITS/ML SUBCUT SCH ×4 (06:55→21:00)
[2021-08-05 07:06] LABS: BASOPHILS % 1.3 % (0.0-2.0); EOSINOPHILS % 3.9 % (0.0-5.0); HEMATOCRIT. 38.6 % (42.0-52.0); HEMOGLOBIN. 12.8 g/dL (14.0-18.0); LYMPHOCYTES % 27.3 % (20.0-50.0); MEAN CORPUSCULAR HEMOGLOBIN 29.7 pg (28.0-32.0); MEAN PLATELET VOLUME 10.1 fl (7.4-10.4); MONOCYTES % 9.8 % (2.0-8.0); NEUTROPHILS % 57.7 % (40.0-76.0); PLATELET 239 x1000/uL (130-400); RED BLOOD CELL COUNT 4.29 mill/uL (4.7-6.1); RED CELL DISTRIBUTION WIDTH 14.1 % (11.6-14.6)
[2021-08-05 08:00] VITALS: BP 106/54
[2021-08-05] MEDS: LISINOPRIL 20MG TABLET PO SCH ×2 (09:00→21:29)
[2021-08-05] MEDS: ACETAMINOPHEN 325MG TABLET PO PRN (09:20)
[2021-08-05] MEDS: LIDOCAINE 5% PATCH TOP SCH ×2 (09:21→09:22)
[2021-08-05] MEDS: POLYETHYLENE GLYCOL 3350 (17GM) 1 DOSE PACK PO SCH (09:21)
[2021-08-05] MEDS: FERROUS SULFATE 325MG TABLET PO SCH ×3 (09:22→17:38)
[2021-08-05] MEDS: LEVETIRACETAM 500MG TABLET PO SCH ×2 (09:22→21:28)
[2021-08-05] MEDS: ASCORBIC ACID 500 MG TABLET PO SCH (09:22)
[2021-08-05] MEDS: INSULIN GLARGINE UD 100 UNITS/ML SYR SUBCUT SCH (11:59)
[2021-08-05] MEDS: LACTULOSE 20G/30ML UDC PO SCH ×3 (15:01→17:48)
[2021-08-05] MEDS: FUROSEMIDE 40MG TABLET PO SCH (17:39)
[2021-08-05 20:00] VITALS: BP 138/83
[2021-08-06] MEDS: NITROGLYCERIN OINT 1GM/INCH UDPKT TD SCH ×3 (06:00→21:05)
[2021-08-06] MEDS: BLOOD SUGAR DIAGNOSTIC STRIP TEST SCH ×4 (06:03→20:28)
[2021-08-06] MEDS: ENOXAPARIN 30MG/0.3ML SYR SUBCUT SCH ×2 (06:04→17:03)
[2021-08-06] MEDS: FAMOTIDINE 20MG TABLET PO SCH (06:04)
[2021-08-06 08:00] VITALS: BP 107/69
[2021-08-06] MEDS: LISINOPRIL 20MG TABLET PO SCH (09:00)
[2021-08-06] MEDS: INSULIN LISPRO 100 UNITS/ML SUBCUT SCH ×4 (09:00→20:29)
[2021-08-06] MEDS: POLYETHYLENE GLYCOL 3350 (17GM) 1 DOSE PACK PO SCH (09:54)
[2021-08-06] MEDS: LIDOCAINE 5% PATCH TOP SCH ×2 (09:55→09:56)
[2021-08-06] MEDS: FERROUS SULFATE 325MG TABLET PO SCH ×3 (09:56→17:03)
[2021-08-06] MEDS: LEVETIRACETAM 500MG TABLET PO SCH ×2 (09:56→20:27)
[2021-08-06] MEDS: LACTULOSE 20G/30ML UDC PO SCH ×2 (09:56→13:00)
[2021-08-06] MEDS: ACETAMINOPHEN 325MG TABLET PO PRN ×2 (09:57→20:28)
[2021-08-06] MEDS: ASCORBIC ACID 500 MG TABLET PO SCH (09:57)
[2021-08-06] MEDS: INSULIN GLARGINE UD 100 UNITS/ML SYR SUBCUT SCH (10:07)
[2021-08-06] MEDS: FUROSEMIDE 40MG TABLET PO SCH (17:03)
[2021-08-06 17:11] LABS: 25-HYDROXY VITAMIN D3 18 ng/mL (.)
[2021-08-06 20:00] VITALS: BP 117/71
[2021-08-06] MEDS: LISINOPRIL 5MG TABLET PO SCH (20:27)
[2021-08-06] MEDS: ERGOCALCIFEROL 50000UNITS CAPSULE PO SCH (20:27)
[2021-08-07] MEDS: ENOXAPARIN 30MG/0.3ML SYR SUBCUT SCH ×2 (06:16→17:37)
[2021-08-07] MEDS: FAMOTIDINE 20MG TABLET PO SCH (06:16)
[2021-08-07] MEDS: NITROGLYCERIN OINT 1GM/INCH UDPKT TD SCH ×3 (06:19→21:47)
[2021-08-07] MEDS: BLOOD SUGAR DIAGNOSTIC STRIP TEST SCH ×4 (06:19→20:35)
[2021-08-07] MEDS: INSULIN LISPRO 100 UNITS/ML SUBCUT SCH ×4 (06:19→20:34)
[2021-08-07 07:56] VITALS: BP 122/77
[2021-08-07] MEDS: POLYETHYLENE GLYCOL 3350 (17GM) 1 DOSE PACK PO SCH (09:00)
[2021-08-07] MEDS: LIDOCAINE 5% PATCH TOP SCH ×2 (09:13)
[2021-08-07] MEDS: ASCORBIC ACID 500 MG TABLET PO SCH (09:14)
[2021-08-07] MEDS: LEVETIRACETAM 500MG TABLET PO SCH ×2 (09:14→21:47)
[2021-08-07] MEDS: FERROUS SULFATE 325MG TABLET PO SCH ×3 (09:14→17:36)
[2021-08-07] MEDS: LISINOPRIL 5MG TABLET PO SCH ×2 (09:14→20:34)
[2021-08-07 09:19] LABS: BASOPHILS % 1.5 % (0.0-2.0); EOSINOPHILS % 4.2 % (0.0-5.0); HEMATOCRIT. 38.2 % (42.0-52.0); HEMOGLOBIN. 12.4 g/dL (14.0-18.0); LYMPHOCYTES % 30.9 % (20.0-50.0); MEAN CORPUSCULAR HEMOGLOBIN 29.4 pg (28.0-32.0); MEAN CORPUSCULAR VOLUME 90.5 fL (80.0-94.0); MEAN PLATELET VOLUME 10.2 fl (7.4-10.4); MONOCYTES % 8.9 % (2.0-8.0); NEUTROPHILS % 54.5 % (40.0-76.0); PLATELET 233 x1000/uL (130-400); RED BLOOD CELL COUNT 4.23 mill/uL (4.7-6.1); RED CELL DISTRIBUTION WIDTH 14.2 % (11.6-14.6)
[2021-08-07] MEDS: INSULIN GLARGINE UD 100 UNITS/ML SYR SUBCUT SCH (11:13)
[2021-08-07] MEDS: FUROSEMIDE 40MG TABLET PO SCH (17:36)
[2021-08-07] MEDS: ACETAMINOPHEN 325MG TABLET PO PRN (18:17)
[2021-08-07 20:00] VITALS: BP 107/63
[2021-08-08] MEDS: ENOXAPARIN 30MG/0.3ML SYR SUBCUT SCH ×2 (05:51→17:03)
[2021-08-08] MEDS: INSULIN LISPRO 100 UNITS/ML SUBCUT SCH ×4 (05:52→21:00)
[2021-08-08] MEDS: BLOOD SUGAR DIAGNOSTIC STRIP TEST SCH ×4 (05:52→21:00)
[2021-08-08] MEDS: DOCUSATE SODIUM 100MG CAPSULE PO PRN (05:59)
[2021-08-08] MEDS: ACETAMINOPHEN 325MG TABLET PO PRN (06:00)
[2021-08-08] MEDS: FAMOTIDINE 20MG TABLET PO SCH (06:00)
[2021-08-08] MEDS: NITROGLYCERIN OINT 1GM/INCH UDPKT TD SCH ×3 (06:01→23:18)
[2021-08-08] MEDS: POLYETHYLENE GLYCOL 3350 (17GM) 1 DOSE PACK PO SCH (09:00)
[2021-08-08 09:21] VITALS: BP 120/76
[2021-08-08] MEDS: FERROUS SULFATE 325MG TABLET PO SCH ×3 (11:12→17:02)
[2021-08-08] MEDS: LEVETIRACETAM 500MG TABLET PO SCH ×2 (11:13→21:41)
[2021-08-08] MEDS: LIDOCAINE 5% PATCH TOP SCH ×2 (11:13)
[2021-08-08] MEDS: LISINOPRIL 5MG TABLET PO SCH ×2 (11:13→21:41)
[2021-08-08] MEDS: ASCORBIC ACID 500 MG TABLET PO SCH (11:13)
[2021-08-08] MEDS: INSULIN GLARGINE UD 100 UNITS/ML SYR SUBCUT SCH (11:17)
[2021-08-08] MEDS: FUROSEMIDE 40MG TABLET PO SCH (17:02)
[2021-08-08 20:00] VITALS: BP 128/76
[2021-08-09] MEDS: FAMOTIDINE 20MG TABLET PO SCH (06:23)
[2021-08-09] MEDS: ENOXAPARIN 30MG/0.3ML SYR SUBCUT SCH ×2 (06:24→20:49)
[2021-08-09] MEDS: BLOOD SUGAR DIAGNOSTIC STRIP TEST SCH ×4 (06:30→21:00)
[2021-08-09] MEDS: INSULIN LISPRO 100 UNITS/ML SUBCUT SCH ×4 (06:33→22:00)
[2021-08-09] MEDS: NITROGLYCERIN OINT 1GM/INCH UDPKT TD SCH ×3 (06:33→23:23)
[2021-08-09 06:51] LABS: BASOPHILS % 1.1 % (0.0-2.0); EOSINOPHILS % 4.9 % (0.0-5.0); HEMOGLOBIN. 12.5 g/dL (14.0-18.0); LYMPHOCYTES % 30.5 % (20.0-50.0); MEAN CORPUSCULAR HEMOGLOBIN 29.7 pg (28.0-32.0); MEAN CORPUSCULAR VOLUME 90.1 fL (80.0-94.0); MEAN PLATELET VOLUME 10.1 fl (7.4-10.4); NEUTROPHILS % 54.5 % (40.0-76.0); PLATELET 210 x1000/uL (130-400); RED BLOOD CELL COUNT 4.22 mill/uL (4.7-6.1); RED CELL DISTRIBUTION WIDTH 14.3 % (11.6-14.6)
[2021-08-09 08:00] VITALS: BP 119/71
[2021-08-09] MEDS: POLYETHYLENE GLYCOL 3350 (17GM) 1 DOSE PACK PO SCH (10:00)
[2021-08-09] MEDS: LEVETIRACETAM 500MG TABLET PO SCH ×2 (10:04→23:20)
[2021-08-09] MEDS: LIDOCAINE 5% PATCH TOP SCH ×2 (10:04)
[2021-08-09] MEDS: FERROUS SULFATE 325MG TABLET PO SCH ×3 (10:04→17:45)
[2021-08-09] MEDS: DOCUSATE SODIUM 100MG CAPSULE PO PRN ×2 (10:05→17:45)
[2021-08-09] MEDS: LISINOPRIL 5MG TABLET PO SCH ×2 (10:05→23:21)
[2021-08-09] MEDS: ASCORBIC ACID 500 MG TABLET PO SCH (10:05)
[2021-08-09] MEDS: INSULIN GLARGINE UD 100 UNITS/ML SYR SUBCUT SCH (10:07)
[2021-08-09] MEDS: FUROSEMIDE 40MG TABLET PO SCH (17:45)
[2021-08-09] MEDS: ACETAMINOPHEN 325MG TABLET PO PRN (17:53)
[2021-08-09 20:00] VITALS: BP 103/60
[2021-08-10] MEDS: FAMOTIDINE 20MG TABLET PO SCH (06:36)
[2021-08-10] MEDS: ENOXAPARIN 30MG/0.3ML SYR SUBCUT SCH ×2 (06:36→18:42)
[2021-08-10] MEDS: NITROGLYCERIN OINT 1GM/INCH UDPKT TD SCH ×3 (06:38→22:04)
[2021-08-10] MEDS: BLOOD SUGAR DIAGNOSTIC STRIP TEST SCH ×4 (07:04→21:00)
[2021-08-10 08:00] VITALS: BP 111/69
[2021-08-10] MEDS: INSULIN LISPRO 100 UNITS/ML SUBCUT SCH ×4 (09:00→21:00)
[2021-08-10] MEDS: LISINOPRIL 5MG TABLET PO SCH ×2 (10:39→22:04)
[2021-08-10] MEDS: ASCORBIC ACID 500 MG TABLET PO SCH (10:40)
[2021-08-10] MEDS: FERROUS SULFATE 325MG TABLET PO SCH ×3 (10:40→16:39)
[2021-08-10] MEDS: LEVETIRACETAM 500MG TABLET PO SCH ×2 (10:40→22:04)
[2021-08-10] MEDS: POLYETHYLENE GLYCOL 3350 (17GM) 1 DOSE PACK PO SCH (10:40)
[2021-08-10] MEDS: LIDOCAINE 5% PATCH TOP SCH ×2 (10:50→16:31)
[2021-08-10] MEDS: INSULIN GLARGINE UD 100 UNITS/ML SYR SUBCUT SCH (13:52)
[2021-08-10] MEDS ORDERED: SODIUM POLYSTYRENE SULFONATE 15 G/60 ML BOT PO NR (16:00)
[2021-08-10] MEDS: DOCUSATE SODIUM 100MG CAPSULE PO PRN (16:39)
[2021-08-10] MEDS: FUROSEMIDE 40MG TABLET PO SCH (16:39)
[2021-08-10] MEDS: ACETAMINOPHEN 325MG TABLET PO PRN (16:41)
[2021-08-10 20:00] VITALS: BP 122/75
[2021-08-11] MEDS: ACETAMINOPHEN 325MG TABLET PO PRN ×3 (01:18→15:49)
[2021-08-11] MEDS: INSULIN LISPRO 100 UNITS/ML SUBCUT SCH ×4 (06:09→20:30)
[2021-08-11] MEDS: NITROGLYCERIN OINT 1GM/INCH UDPKT TD SCH ×3 (06:09→21:13)
[2021-08-11] MEDS: BLOOD SUGAR DIAGNOSTIC STRIP TEST SCH ×4 (06:09→20:30)
[2021-08-11] MEDS: FAMOTIDINE 20MG TABLET PO SCH (06:09)
[2021-08-11] MEDS: ENOXAPARIN 30MG/0.3ML SYR SUBCUT SCH ×2 (06:10→18:40)
[2021-08-11 07:30] LABS: BASOPHILS % 1.3 % (0.0-2.0); EOSINOPHILS % 6.1 % (0.0-5.0); HEMATOCRIT. 35.8 % (42.0-52.0); HEMOGLOBIN. 11.9 g/dL (14.0-18.0); LYMPHOCYTES % 30.2 % (20.0-50.0); MEAN CORPUSCULAR HEMOGLOBIN 29.7 pg (28.0-32.0); MEAN CORPUSCULAR VOLUME 89.8 fL (80.0-94.0); MEAN PLATELET VOLUME 10.2 fl (7.4-10.4); MONOCYTES % 9.6 % (2.0-8.0); NEUTROPHILS % 52.8 % (40.0-76.0); PLATELET 168 x1000/uL (130-400); RED BLOOD CELL COUNT 3.99 mill/uL (4.7-6.1); RED CELL DISTRIBUTION WIDTH 14.1 % (11.6-14.6)
[2021-08-11 08:10] VITALS: BP 106/72
[2021-08-11] MEDS: DOCUSATE SODIUM 100MG CAPSULE PO PRN ×2 (10:29→17:42)
[2021-08-11] MEDS: ASCORBIC ACID 500 MG TABLET PO SCH (10:29)
[2021-08-11] MEDS: FERROUS SULFATE 325MG TABLET PO SCH ×3 (10:29→17:42)
[2021-08-11] MEDS: LEVETIRACETAM 500MG TABLET PO SCH ×2 (10:29→20:26)
[2021-08-11] MEDS: LISINOPRIL 5MG TABLET PO SCH ×2 (10:30→20:26)
[2021-08-11] MEDS: POLYETHYLENE GLYCOL 3350 (17GM) 1 DOSE PACK PO SCH (10:31)
[2021-08-11] MEDS: INSULIN GLARGINE UD 100 UNITS/ML SYR SUBCUT SCH (10:35)
[2021-08-11] MEDS: LIDOCAINE 5% PATCH TOP SCH ×2 (10:39→10:40)
[2021-08-11] MEDS: ACETAMINOPHEN 500MG TABLET PO SCH (16:58)
[2021-08-11] MEDS ORDERED: AMOXICILLIN 500 MG CAPSULE PO SCH (17:00)
[2021-08-11] MEDS: FUROSEMIDE 40MG TABLET PO SCH (17:42)
[2021-08-11 20:00] VITALS: BP 114/76
[2021-08-12] MEDS: AMOXICILLIN 500 MG CAPSULE PO SCH ×3 (04:05→22:04)
[2021-08-12] MEDS: ENOXAPARIN 30MG/0.3ML SYR SUBCUT SCH ×2 (06:14→18:16)
[2021-08-12] MEDS: FAMOTIDINE 20MG TABLET PO SCH (06:14)
[2021-08-12] MEDS: NITROGLYCERIN OINT 1GM/INCH UDPKT TD SCH ×2 (06:14→15:28)
[2021-08-12] MEDS: INSULIN LISPRO 100 UNITS/ML SUBCUT SCH ×3 (06:21→21:00)
[2021-08-12] MEDS: BLOOD SUGAR DIAGNOSTIC STRIP TEST SCH ×3 (06:21→21:00)
[2021-08-12 08:30] VITALS: BP 115/71
[2021-08-12] MEDS: FERROUS SULFATE 325MG TABLET PO SCH ×3 (10:13→18:15)
[2021-08-12] MEDS: LISINOPRIL 5MG TABLET PO SCH ×2 (10:13→21:00)
[2021-08-12] MEDS: LEVETIRACETAM 500MG TABLET PO SCH ×2 (10:14→22:04)
[2021-08-12] MEDS: DOCUSATE SODIUM 100MG CAPSULE PO PRN ×2 (10:14→18:15)
[2021-08-12] MEDS: ACETAMINOPHEN 500MG TABLET PO SCH ×3 (10:14→17:00)
[2021-08-12] MEDS: ASCORBIC ACID 500 MG TABLET PO SCH (10:14)
[2021-08-12] MEDS: POLYETHYLENE GLYCOL 3350 (17GM) 1 DOSE PACK PO SCH (10:15)
[2021-08-12] MEDS: LIDOCAINE 5% PATCH TOP SCH ×2 (10:16→10:20)
[2021-08-12] MEDS: INSULIN GLARGINE UD 100 UNITS/ML SYR SUBCUT SCH (10:19)
[2021-08-12] MEDS: FUROSEMIDE 40MG TABLET PO SCH (18:15)
[2021-08-12 20:00] VITALS: BP 123/76
[2021-08-13] MEDS: NITROGLYCERIN OINT 1GM/INCH UDPKT TD SCH ×4 (01:50→22:01)
[2021-08-13] MEDS: AMOXICILLIN 500 MG CAPSULE PO SCH ×3 (04:35→20:01)
[2021-08-13] MEDS: FAMOTIDINE 20MG TABLET PO SCH (06:34)
[2021-08-13] MEDS: BLOOD SUGAR DIAGNOSTIC STRIP TEST SCH ×4 (06:34→21:57)
[2021-08-13] MEDS: ENOXAPARIN 30MG/0.3ML SYR SUBCUT SCH ×2 (06:34→17:09)
[2021-08-13 08:00] VITALS: BP 120/87
[2021-08-13] MEDS: ASCORBIC ACID 500 MG TABLET PO SCH (08:13)
[2021-08-13] MEDS: FERROUS SULFATE 325MG TABLET PO SCH ×3 (08:13→17:09)
[2021-08-13] MEDS: POLYETHYLENE GLYCOL 3350 (17GM) 1 DOSE PACK PO SCH (08:13)
[2021-08-13] MEDS: ACETAMINOPHEN 500MG TABLET PO SCH ×3 (08:13→17:09)
[2021-08-13] MEDS: LEVETIRACETAM 500MG TABLET PO SCH ×2 (08:13→21:58)
[2021-08-13] MEDS: LIDOCAINE 5% PATCH TOP SCH ×2 (08:19→08:20)
[2021-08-13] MEDS: INSULIN LISPRO 100 UNITS/ML SUBCUT SCH ×4 (08:25→21:00)
[2021-08-13] MEDS: LISINOPRIL 5MG TABLET PO SCH ×2 (08:25→22:01)
[2021-08-13] MEDS: INSULIN GLARGINE UD 100 UNITS/ML SYR SUBCUT SCH (10:44)
[2021-08-13] MEDS: FUROSEMIDE 40MG TABLET PO SCH (17:09)
[2021-08-13 20:00] VITALS: BP 111/79
[2021-08-13] MEDS: ERGOCALCIFEROL 50000UNITS CAPSULE PO SCH (20:01)
[2021-08-14] MEDS: ACETAMINOPHEN 325MG TABLET PO PRN (01:50)
[2021-08-14] MEDS: AMOXICILLIN 500 MG CAPSULE PO SCH ×3 (04:27→21:28)
[2021-08-14] MEDS: NITROGLYCERIN OINT 1GM/INCH UDPKT TD SCH ×3 (06:16→22:00)
[2021-08-14] MEDS: ENOXAPARIN 30MG/0.3ML SYR SUBCUT SCH ×2 (06:17→17:49)
[2021-08-14] MEDS: FAMOTIDINE 20MG TABLET PO SCH (06:17)
[2021-08-14] MEDS: BLOOD SUGAR DIAGNOSTIC STRIP TEST SCH ×4 (06:17→21:00)
[2021-08-14] MEDS: INSULIN LISPRO 100 UNITS/ML SUBCUT SCH ×4 (06:25→21:00)
[2021-08-14 08:00] VITALS: BP 115/76
[2021-08-14 08:47] LABS: BASOPHILS % 0.9 % (0.0-2.0); HEMATOCRIT. 37.2 % (42.0-52.0); HEMOGLOBIN. 12.3 g/dL (14.0-18.0); LYMPHOCYTES % 27.6 % (20.0-50.0); MEAN CORPUSCULAR HEMOGLOBIN 29.3 pg (28.0-32.0); MEAN CORPUSCULAR VOLUME 88.9 fL (80.0-94.0); MEAN PLATELET VOLUME 9.9 fl (7.4-10.4); MONOCYTES % 8.6 % (2.0-8.0); NEUTROPHILS % 56.9 % (40.0-76.0); PLATELET 161 x1000/uL (130-400); RED BLOOD CELL COUNT 4.19 mill/uL (4.7-6.1); RED CELL DISTRIBUTION WIDTH 13.9 % (11.6-14.6)
[2021-08-14 09:00] LABS: CHLORIDE 105 mEq/L (98-107)
[2021-08-14] MEDS: LEVETIRACETAM 500MG TABLET PO SCH ×2 (09:10→21:00)
[2021-08-14] MEDS: ACETAMINOPHEN 500MG TABLET PO SCH ×3 (09:10→17:49)
[2021-08-14] MEDS: ASCORBIC ACID 500 MG TABLET PO SCH (09:10)
[2021-08-14] MEDS: LIDOCAINE 5% PATCH TOP SCH ×2 (09:11)
[2021-08-14] MEDS: LISINOPRIL 5MG TABLET PO SCH ×2 (09:11→21:29)
[2021-08-14] MEDS: POLYETHYLENE GLYCOL 3350 (17GM) 1 DOSE PACK PO SCH (09:11)
[2021-08-14] MEDS: FERROUS SULFATE 325MG TABLET PO SCH ×3 (09:11→17:49)
[2021-08-14] MEDS: INSULIN GLARGINE UD 100 UNITS/ML SYR SUBCUT SCH (10:42)
[2021-08-14] MEDS ORDERED: LIDOCAINE HCL/PF 1% 10 MG/ML 5ML VIAL IJ NR (11:00)
[2021-08-14] MEDS ORDERED: ETHYL CHLORIDE CAN TOP NR (11:00)
[2021-08-14] MEDS ORDERED: TRIAMCINOLONE ACETONIDE 40MG/ML 1ML VIAL IM NR (11:00)
[2021-08-14] MEDS ORDERED: BUPIVACAINE HCL/PF 0.5% (5MG/ML) 10ML INFIL NR (11:00)
[2021-08-14] MEDS: FUROSEMIDE 40MG TABLET PO SCH (17:49)
[2021-08-14 20:00] VITALS: BP 131/89
[2021-08-15] MEDS: ACETAMINOPHEN 500MG TABLET PO SCH ×3 (02:22→18:17)
[2021-08-15] MEDS: AMOXICILLIN 500 MG CAPSULE PO SCH ×3 (04:28→21:53)
[2021-08-15] MEDS: ENOXAPARIN 30MG/0.3ML SYR SUBCUT SCH ×2 (05:49→18:25)
[2021-08-15] MEDS: FAMOTIDINE 20MG TABLET PO SCH (05:50)
[2021-08-15] MEDS: NITROGLYCERIN OINT 1GM/INCH UDPKT TD SCH ×3 (05:50→21:38)
[2021-08-15] MEDS: BLOOD SUGAR DIAGNOSTIC STRIP TEST SCH ×4 (06:00→21:00)
[2021-08-15] MEDS: INSULIN LISPRO 100 UNITS/ML SUBCUT SCH ×4 (06:41→21:56)
[2021-08-15 08:00] VITALS: BP 102/69
[2021-08-15] MEDS: LISINOPRIL 5MG TABLET PO SCH ×2 (09:00→21:34)
[2021-08-15] MEDS: POLYETHYLENE GLYCOL 3350 (17GM) 1 DOSE PACK PO SCH (09:00)
[2021-08-15] MEDS: ASCORBIC ACID 500 MG TABLET PO SCH (09:03)
[2021-08-15] MEDS: DOCUSATE SODIUM 100MG CAPSULE PO PRN ×2 (09:03→18:16)
[2021-08-15] MEDS: FERROUS SULFATE 325MG TABLET PO SCH ×3 (09:04→18:16)
[2021-08-15] MEDS: LEVETIRACETAM 500MG TABLET PO SCH ×2 (09:04→21:34)
[2021-08-15] MEDS: LIDOCAINE 5% PATCH TOP SCH ×2 (09:06→09:08)
[2021-08-15] MEDS: ACETAMINOPHEN 325MG TABLET PO PRN (09:14)
[2021-08-15] MEDS: INSULIN GLARGINE UD 100 UNITS/ML SYR SUBCUT SCH (11:37)
[2021-08-15] MEDS: FUROSEMIDE 40MG TABLET PO SCH (18:17)
[2021-08-15 20:00] VITALS: BP 145/85
[2021-08-16] MEDS: AMOXICILLIN 500 MG CAPSULE PO SCH ×3 (03:35→21:34)
[2021-08-16] MEDS: ENOXAPARIN 30MG/0.3ML SYR SUBCUT SCH ×2 (05:58→17:16)
[2021-08-16] MEDS: FAMOTIDINE 20MG TABLET PO SCH (05:58)
[2021-08-16] MEDS: NITROGLYCERIN OINT 1GM/INCH UDPKT TD SCH ×3 (05:58→21:35)
[2021-08-16] MEDS: BLOOD SUGAR DIAGNOSTIC STRIP TEST SCH ×4 (06:03→21:35)
[2021-08-16] MEDS: INSULIN LISPRO 100 UNITS/ML SUBCUT SCH ×4 (06:18→21:00)
[2021-08-16 06:32] LABS: BASOPHILS % 0.2 % (0.0-2.0); HEMATOCRIT. 35.5 % (42.0-52.0); LYMPHOCYTES % 9.4 % (20.0-50.0); MEAN CORPUSCULAR HEMOGLOBIN 29.7 pg (28.0-32.0); MEAN CORPUSCULAR VOLUME 88.1 fL (80.0-94.0); MEAN PLATELET VOLUME 10.4 fl (7.4-10.4); MONOCYTES % 4.6 % (2.0-8.0); NEUTROPHILS % 85.8 % (40.0-76.0); PLATELET 167 x1000/uL (130-400); RED BLOOD CELL COUNT 4.03 mill/uL (4.7-6.1); RED CELL DISTRIBUTION WIDTH 14.1 % (11.6-14.6)
[2021-08-16 07:55] VITALS: BP 119/72
[2021-08-16] MEDS: POLYETHYLENE GLYCOL 3350 (17GM) 1 DOSE PACK PO SCH (08:13)
[2021-08-16] MEDS: FERROUS SULFATE 325MG TABLET PO SCH ×3 (08:13→16:52)
[2021-08-16] MEDS: ASCORBIC ACID 500 MG TABLET PO SCH (08:13)
[2021-08-16] MEDS: LISINOPRIL 5MG TABLET PO SCH ×2 (08:13→21:00)
[2021-08-16] MEDS: LEVETIRACETAM 500MG TABLET PO SCH ×2 (08:13→21:34)
[2021-08-16] MEDS: ACETAMINOPHEN 500MG TABLET PO SCH ×3 (08:13→16:52)
[2021-08-16] MEDS: LIDOCAINE 5% PATCH TOP SCH ×2 (08:14)
[2021-08-16] MEDS: INSULIN GLARGINE UD 100 UNITS/ML SYR SUBCUT SCH (10:37)
[2021-08-16] MEDS ORDERED: SODIUM POLYSTYRENE SULFONATE 15 G/60 ML BOT PO NR (15:30)
[2021-08-16] MEDS: FUROSEMIDE 40MG TABLET PO SCH (16:52)
[2021-08-16 20:29] VITALS: BP 113/56
[2021-08-17] MEDS: AMOXICILLIN 500 MG CAPSULE PO SCH (04:00)
[2021-08-17] MEDS: ENOXAPARIN 30MG/0.3ML SYR SUBCUT SCH ×2 (05:54→17:30)
[2021-08-17] MEDS: NITROGLYCERIN OINT 1GM/INCH UDPKT TD SCH ×3 (05:54→21:33)
[2021-08-17] MEDS: BLOOD SUGAR DIAGNOSTIC STRIP TEST SCH ×4 (05:54→21:29)
[2021-08-17] MEDS: INSULIN LISPRO 100 UNITS/ML SUBCUT SCH ×4 (05:59→21:00)
[2021-08-17] MEDS: FAMOTIDINE 20MG TABLET PO SCH (06:00)
[2021-08-17 08:00] VITALS: BP 112/71
[2021-08-17] MEDS: FERROUS SULFATE 325MG TABLET PO SCH ×3 (08:06→17:55)
[2021-08-17] MEDS: ASCORBIC ACID 500 MG TABLET PO SCH (08:06)
[2021-08-17] MEDS: POLYETHYLENE GLYCOL 3350 (17GM) 1 DOSE PACK PO SCH (08:07)
[2021-08-17] MEDS: LEVETIRACETAM 500MG TABLET PO SCH ×2 (08:07→21:31)
[2021-08-17] MEDS: LIDOCAINE 5% PATCH TOP SCH ×3 (08:12→10:36)
[2021-08-17] MEDS: ACETAMINOPHEN 500MG TABLET PO SCH ×4 (08:14→17:28)
[2021-08-17] MEDS: LISINOPRIL 5MG TABLET PO SCH (08:15)
[2021-08-17 09:05] LABS: BASOPHILS % 0.5 % (0.0-2.0); EOSINOPHILS % 0.2 % (0.0-5.0); HEMATOCRIT. 37.1 % (42.0-52.0); HEMOGLOBIN. 12.2 g/dL (14.0-18.0); LYMPHOCYTES % 17.3 % (20.0-50.0); MEAN CORPUSCULAR HEMOGLOBIN 29.2 pg (28.0-32.0); MEAN CORPUSCULAR VOLUME 89.1 fL (80.0-94.0); MEAN PLATELET VOLUME 9.9 fl (7.4-10.4); MONOCYTES % 7.9 % (2.0-8.0); NEUTROPHILS % 74.1 % (40.0-76.0); PLATELET 171 x1000/uL (130-400); RED BLOOD CELL COUNT 4.16 mill/uL (4.7-6.1)
[2021-08-17 09:11] LABS: CHLORIDE 105 mEq/L (98-107)
[2021-08-17] MEDS: INSULIN GLARGINE UD 100 UNITS/ML SYR SUBCUT SCH (10:56)
[2021-08-17] MEDS: FUROSEMIDE 40MG TABLET PO SCH (17:29)
[2021-08-17 20:00] VITALS: BP 110/77
[2021-08-18] MEDS: BLOOD SUGAR DIAGNOSTIC STRIP TEST SCH ×4 (05:40→20:36)
[2021-08-18] MEDS: NITROGLYCERIN OINT 1GM/INCH UDPKT TD SCH ×3 (06:03→21:16)
[2021-08-18] MEDS: ENOXAPARIN 30MG/0.3ML SYR SUBCUT SCH ×2 (06:04→17:27)
[2021-08-18] MEDS: FAMOTIDINE 20MG TABLET PO SCH (06:06)
[2021-08-18] MEDS: INSULIN LISPRO 100 UNITS/ML SUBCUT SCH ×4 (06:24→20:40)
[2021-08-18 07:00] LABS: BASOPHILS % 0.7 % (0.0-2.0); EOSINOPHILS % 1.3 % (0.0-5.0); HEMOGLOBIN. 12.6 g/dL (14.0-18.0); LYMPHOCYTES % 22.9 % (20.0-50.0); MEAN CORPUSCULAR HEMOGLOBIN 29.3 pg (28.0-32.0); MEAN CORPUSCULAR VOLUME 88.4 fL (80.0-94.0); MEAN PLATELET VOLUME 9.7 fl (7.4-10.4); MONOCYTES % 9.1 % (2.0-8.0); PLATELET 174 x1000/uL (130-400); RED CELL DISTRIBUTION WIDTH 14.6 % (11.6-14.6)
[2021-08-18 07:20] LABS: CHLORIDE 107 mEq/L (98-107)
[2021-08-18] MEDS: ASCORBIC ACID 500 MG TABLET PO SCH (08:46)
[2021-08-18] MEDS: FERROUS SULFATE 325MG TABLET PO SCH ×3 (08:46→17:26)
[2021-08-18] MEDS: LEVETIRACETAM 500MG TABLET PO SCH ×2 (08:46→20:37)
[2021-08-18] MEDS: DOCUSATE SODIUM 100MG CAPSULE PO PRN (08:46)
[2021-08-18] MEDS: POLYETHYLENE GLYCOL 3350 (17GM) 1 DOSE PACK PO SCH (08:46)
[2021-08-18] MEDS: LIDOCAINE 5% PATCH TOP SCH ×2 (08:47→09:32)
[2021-08-18] MEDS: INSULIN GLARGINE UD 100 UNITS/ML SYR SUBCUT SCH (09:33)
[2021-08-18] MEDS: ACETAMINOPHEN 325MG TABLET PO PRN (11:01)
[2021-08-18] MEDS: ACETAMINOPHEN 500MG TABLET PO SCH ×2 (13:55→17:26)
[2021-08-18] MEDS: FUROSEMIDE 40MG TABLET PO SCH (17:26)
[2021-08-18 20:00] VITALS: BP 126/70
[2021-08-19] MEDS: INSULIN LISPRO 100 UNITS/ML SUBCUT SCH ×2 (05:40→13:00)
[2021-08-19] MEDS: BLOOD SUGAR DIAGNOSTIC STRIP TEST SCH ×2 (05:44→11:15)
[2021-08-19] MEDS: ENOXAPARIN 30MG/0.3ML SYR SUBCUT SCH (06:13)
[2021-08-19] MEDS: FAMOTIDINE 20MG TABLET PO SCH (06:13)
[2021-08-19] MEDS: NITROGLYCERIN OINT 1GM/INCH UDPKT TD SCH ×2 (06:13→13:25)
[2021-08-19 08:00] VITALS: BP 114/76
[2021-08-19] MEDS: ASCORBIC ACID 500 MG TABLET PO SCH (08:32)
[2021-08-19] MEDS: ACETAMINOPHEN 500MG TABLET PO SCH ×2 (08:32→13:00)
[2021-08-19] MEDS: POLYETHYLENE GLYCOL 3350 (17GM) 1 DOSE PACK PO SCH (08:33)
[2021-08-19] MEDS: LEVETIRACETAM 500MG TABLET PO SCH (08:33)
[2021-08-19] MEDS: FERROUS SULFATE 325MG TABLET PO SCH ×2 (08:33→13:24)
[2021-08-19] MEDS: LIDOCAINE 5% PATCH TOP SCH ×2 (08:33)
[2021-08-19] MEDS: INSULIN GLARGINE UD 100 UNITS/ML SYR SUBCUT SCH (11:08)
[2021-08-19] MEDS: ACETAMINOPHEN 325MG TABLET PO PRN (13:24)
[2021-08-19 13:36] VITALS: BP 115/74
== END 2021-08-19 16:19 | disposition home health service (06) | DRG 52 ==
LOC: UNDOADMIN 12:28
PROVIDERS: ADMIT Physical Medicine & Rehabilitation Spinal Cord Injury Medicine; ATTEND Internal Medicine
PROC: 3E0U33Z Introduction of Anti-inflammatory into Joints, Percutaneous Approach (ICD-10-PCS; 2021-08-14)
PROC: 3E0U3BZ Introduction of Anesthetic Agent into Joints, Percutaneous Approach (ICD-10-PCS; 2021-08-14)
PROC: 4A10X4Z Monitoring of Central Nervous Electrical Activity, External Approach (ICD-10-PCS; principal; 2021-08-19)
DX: G93.41 Metabolic encephalopathy (principal); N17.0 Acute kidney failure with tubular necrosis; J96.00 Acute respiratory failure, unspecified whether with hypoxia or hypercapnia; R65.20 Severe sepsis without septic shock; A41.9 Sepsis, unspecified organism; E11.10 Type 2 diabetes mellitus with ketoacidosis without coma; E44.1 Mild protein-calorie malnutrition; U07.1 COVID-19; D63.8 Anemia in other chronic diseases classified elsewhere; E11.649 Type 2 diabetes mellitus with hypoglycemia without coma; E11.22 Type 2 diabetes mellitus with diabetic chronic kidney disease; E78.5 Hyperlipidemia, unspecified; G40.909 Epilepsy, unspecified, not intractable, without status epilepticus; G89.29 Other chronic pain; I12.9 Hypertensive chronic kidney disease with stage 1 through stage 4 chronic kidney disease, or unspecified chronic kidney disease; I25.10 Atherosclerotic heart disease of native coronary artery without angina pectoris; F14.10 Cocaine abuse, uncomplicated; D32.0 Benign neoplasm of cerebral meninges; N18.30 Chronic kidney disease, stage 3 unspecified; J45.909 Unspecified asthma, uncomplicated; E78.00 Pure hypercholesterolemia, unspecified; E87.5 Hyperkalemia; M17.12 Unilateral primary osteoarthritis, left knee; K08.89 Other specified disorders of teeth and supporting structures; E55.9 Vitamin D deficiency, unspecified; F01.50 Vascular dementia, unspecified severity, without behavioral disturbance, psychotic disturbance, mood disturbance, and anxiety; F39 Unspecified mood [affective] disorder; E46 Unspecified protein-calorie malnutrition; Z79.4 Long term (current) use of insulin; Z87.01 Personal history of pneumonia (recurrent); Z82.49 Family history of ischemic heart disease and other diseases of the circulatory system; Z87.891 Personal history of nicotine dependence; Z68.33 Body mass index [BMI] 33.0-33.9, adult; M79.609 Pain in unspecified limb
CPT/HCPCS: 36415; 71045; 73560; 76770; 80048; 80053; 80061; 81003; 82140; 82306; 82550; 82607; 82728; 82746; 82962; 83036; 83540; 83550; 84134; 84153; 84443; 85025; 86038; 86160; 92523; 93970; 97110; 97116; 97150; 97163; 97166; 97530; 97535; J1650; J1815; J3301; J3490; G0103